=== PATIENT | female | born 1975 | race Caucasian/White ===

== ENCOUNTER 2021-11-21 19:12 | Emergency (ER) | payer BC, SELFPAY ==
[2021-11-21] VITALS (7 sets, daily range): BP systolic 160–164; BP diastolic 98–107; PULSE 78–102; RESP 18; TEMP 37; O2SAT 96–100
--- NOTE | 2021-11-21 20:09 | CRLHL7_ITS ---
For Patients: As a result of the Century Cures Act, medical imaging exams and procedure reports are released immediately into your electronic medical record. You may view this report before your referring provider. If you have questions, please contact your health care provider. INDICATION: Abdominal pain, diarrhea, hematochezia TECHNIQUE: CT abdomen and pelvis acquired with 71 cc Isovue 370 IV contrast. COMPARISON: None. FINDINGS: Lower chest: The visualized lower lungs are aerated. No pleural or pericardial effusion. ABDOMEN: Liver: Normal enhancement liver. Scattered sub centimeter hypodensities are too small to characterize however statistically represent cysts/biliary hamartomas. Right hepatic lobe cyst. Gallbladder and biliary: Cholelithiasis in an otherwise normal gallbladder. Normal caliber bile ducts. Spleen: Normal size and enhancement. Pancreas: Normal enhancement without peripancreatic inflammatory changes or ductal dilatation. Pancreas divisum. Adrenal glands: Normal adrenal glands. Kidneys and ureters: Normal enhancement. No radio-opaque calculi. No hydroureteronephrosis. Subcentimeter hypodensities are too small to characterize however statistically represent cysts. GI tract: The stomach is relatively decompressed. Normal caliber small and large bowel loops. Normal appendix. Circumferential wall thickening throughout the near entirety of the colon with associated mild adjacent inflammatory stranding. No diverticulosis. Vascular structures: Normal caliber abdominal aorta. Lymph nodes: No lymphadenopathy in the abdomen or pelvis by size criteria. Peritoneum: No free air, free fluid, or focal drainable fluid collection. PELVIS: Genitourinary system: Normal urinary bladder. Age-appropriate uterus. SKELETAL STRUCTURES AND SOFT TISSUES: No suspicious lytic or blastic lesions. IMPRESSION: Circumferential wall thickening throughout the near entirety of the colon with associated mild adjacent inflammatory stranding. No diverticulosis. Constellation of findings favor pancolitis. Please note that all CT scans at this facility use dose modulation, iterative reconstruction, and/or weight-based dosing when appropriate to reduce radiation dose to as low as reasonably achievable. Dictated by Jesus Alberto Daniel MD @ 11/21/2021 9:01:02 PM (Electronically Signed)
--- NOTE | 2021-11-21 20:16 | ED_ITS ---
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 Otherwise no particular sick contacts. Presents with 3 days of diarrhea and abdominal cramping across the low abdomen. Initially quite profuse. It slowed maybe a little bit but any time she eats or maybe drinks would be triggered to cramping and have movement. Was seen this morning in urgency care where labs were done. I am able to review these results. Looks like hemoglobin was reported to be normal and white count was not apparently elevated. Comprehensive metabolic panel also was unimpressive. Stool cultures and C diff are pending. She did not have recent antibiotics. No known a history of irritable bowel type sympto ms. No family history of Crohn's or ulcerative colitis. She does have some more remote hemorrhoids but she does not believe that these are acting up at this point. No fever. What was alarming is that started to notice blood in the stool today. She does not note any lightheadedness or shortness of breath. She did receive IV fluids at the urgency room. Related Data Home Medications Medication Instructions Recorded Confirmed buspirone 10 mg tablet mg 11/21/21 labetalol 200 mg tablet mg 11/21/21 trazodone 50 mg tablet mg 11/21/21 venlafaxine 37.5 mg 112.5 mg PO DAILY 11/21/21 11/21/21 capsule,extended release 24 hr Allergies Allergy/AdvReac Type Severity Reaction Status Date / Time dissolvable sutures Allergy Uncoded 11/21/21 20:28 Review of Systems Status of ROS: Reports: 10 or more systems reviewed and unremarkable except as noted in History and below [facility] Social History Smoking Status: Never smoker Do you use any of these nicotine containing products: None Second hand tobacco smoke exposure: Yes How often do you have a drink containing alcohol: 4 or more times a week How many standard drinks containing alcohol do you have on a typical day: 3 or 4 How often do you have six or more drinks on one occasion: Never AUDIT-C Alcohol total score: 5 Non-prescribed substance use: denies use Exam Narrative: Exam Narrative: Pleasant. NAD. Good sense of humor. Skin is warm and dry. Breathing easily. Lungs clear. Cardiovascular RRR no murmurs rubs or gallops Abdomen is moderately tender without peritoneal signs across the low abdomen. Normoactive to maybe hyperactive bowel sounds. No flank pain Moving all extremities without difficulty. Well perfused. Anal/rectal exam not done Const: Vital Signs, click to edit/add: Vital Signs - 24 hr 11/21/21 19:37 11/21/21 19:52 11/21/21 20:00 Temperature 98.6 F Pulse Rate 102 H 83 Pulse Rate [Pulse Oximeter] 89 Respiratory Rate 18 Blood Pressure Blood Pressure [Le ft Upper Arm] 161/107 H Pulse Oximetry 98 100 97 Oxygen Delivery Me thod Room Air 11/21/21 20:15 11/21/21 20:36 11/21/21 20:49 Temperature Pulse Rate 78 79 Pulse Rate [Pulse Oximeter] Respiratory Rate Blood Pressure 164/98 H Blood Pressure [Le ft Upper Arm] Pulse Oximetry 96 98 Oxygen Delivery Me thod 11/21/21 21:31 Temperature Pulse Rate Pulse Rate [Pulse Oximeter] Respiratory Rate Blood Pressure 160/100 H Blood Pressure [Le ft Upper Arm] Pulse Oximetry Oxygen Delivery Me thod Documenting provider has reviewed patient's vital signs: yes Course Course Hospital Course: Given L of fluids and hyoscyamine. Upon re-evaluation noted that symptoms did not change significantly Vital Signs Vital signs: Initial Vital Signs Temperature 98.6 F 11/21/21 19:37 Temperature Source Temporal Artery Scan 11/21/21 19:37 Pulse Rate 89 11/21/21 19:37 Respiratory Rate 18 11/21/21 19:37 Blood Pressure 161/107 H 11/21/21 19:37 Blood Pressure Mean 125 11/21/21 19:37 Pulse Oximetry 98 11/21/21 19:37 Oxygen Delivery Method 11/21/21 19:37 Vital Signs Temperature 98.6 F 11/21/21 19:37 Pulse Rate 89 11/21/21 19:37 Respiratory Rate 18 11/21/21 19:37 Blood Pressure 161/107 H 11/21/21 19:37 Pulse Oximetry 98 11/21/21 19:37 Oxygen Delivery Method 11/21/21 19:37 Temperature 98.6 F 11/21/21 19:37 Pulse Rate 79 11/21/21 20:36 Respiratory Rate 18 11/21/21 19:37 Blood Pressure 160/100 H 11/21/21 21:31 Pulse Oximetry 98 11/21/21 20:36 Oxygen Delivery Method 11/21/21 19:37 MDM - Nausea/Vomiting/Diarrhea MDM Narrative Medical decision making narrative: I think has relatively benign abdomen. Suspect infectious colitis of some sort. White count and lab workup in general was reassuring this morning with stool analysis pending. She would like some more fluids. I think that is reasonable. We discussed potentially waiting a couple of days for improvement or proceeding now with imaging. Differential does include diverticular disease though I think this is less likely. Diarrhea with internal hemorrhoidal bleeding would be possible as well. Seems more like a colitis though with abdominal colic. CBC and Chems are normal from earlier today Ms. Hyde would like more definitive diagnosis; not unreasonable. CT scan confirms pancolitis and we see cholelithiasis (she is aware of this) Medical Records Attestation: I reviewed the patient's medical records. Lab Data Attestation: I reviewed the patient's lab results. (From this morning in outside clinic) Discharge Plan Discharge Clinical Impression: Colitis, Hematochezia Patient Disposition: Home, Self-Care Condition: Stable Additional Instructions: Continue to focus on hydration. Diluted juices, broths advancing to thicker soups and smoothies over the period of the next couple of days. Return/be seen for uncontrolled pain, repeated vomiting, diarrhea to the point where feeling potentially getting dehydrated/lightheaded, marked increase in bleeding, associated fever. Can take ibuprofen up to 800 mg per dose. Can take acetaminophen up to 1000 mg per dose. Keep in mind that the [place] has 325 mg of acetaminophen in each tablet. Any of these medications can be combined. Hopefully results come back soon from your earlier visit today. This might direct further treatment. Otherwise follow-up in 4-5 days if symptoms are persisting and you are not otherwise unwell as noted above. [facility] from [facility] Prescriptions: No Action venlafaxine 37.5 mg capsule,extended release 24hr 112.5 mg PO DAILY labetalol 200 mg tablet Label Comments: TAKE 1 TABLET BY MOUTH TWICE A DAY trazodone 50 mg tablet Label Comments: TAKE 1 TABLET BY MOUTH EVERY DAY AT BEDTIME NEEDED FOR SLEEP buspirone 10 mg tablet Label Comments: TAKE 1 TABLET BY MOUTH 3 TIMES DAILY Follow Up/Referrals: OeSara mcintosh DO [Primary Care Provider] - Stand Alone Forms: [facility] Info Instructions
[2021-11-21] MEDS: 0.9 % SODIUM CHLORIDE 1000 ml 1,000 ML IV (20:57)
== END 2021-11-21 22:12 | disposition home or self-care (01) ==
PROVIDERS: Emergency Provider Family Medicine; PCP Family Medicine
DX: K52.9 Noninfective gastroenteritis and colitis, unspecified (principal); K92.1 Melena
CPT/HCPCS: 74177; 96360; 99284; J7030; Q9967

== ENCOUNTER 2021-11-22 19:11 | Emergency (ER) | payer BC, SELFPAY ==
[2021-11-22 19:16] VITALS: BP 152/105; PULSE 92; TEMP 37.6; O2SAT 98; BMI 25.8
[2021-11-22 19:30] VITALS: BP 150/106; RESP 16; O2SAT 98
--- NOTE | 2021-11-22 19:42 | ED.ABDPAIN ---
HPI - Abdominal Pain General Chief Complaint: Abdominal Pain Stated Complaint: Intestinal Problems Time Seen by Provider: 11/22/21 19:13 History of Present Illness HPI narrative: This 46-year-old female returns today for because of abdominal pain and bloody diarrhea. She was seen last evening and a previous urgent care results showed evidence of she got toxin in the stool. She states that she has bloody diarrhea about every half an hour. She has taken her medications but feels that she has not absorbed them and has some increased anxiety. She is taking Effexor and buspirone. She arrives with normal vital signs. Related Data Home Medications Medication Instructions Recorded Confirmed buspirone 10 mg tablet mg 11/21/21 labetalol 200 mg tablet mg 11/21/21 trazodone 50 mg tablet mg 11/21/21 venlafaxine 37.5 mg 112.5 mg PO DAILY 11/21/21 11/21/21 capsule,extended release 24 hr Allergies Allergy/AdvReac Type Severity Reaction Status Date / Time dissolvable sutures Allergy Uncoded 11/21/21 20:28 Review of Systems Status of ROS Reports: 10 or more systems reviewed and unremarkable except as noted in History and below Narrative Constitutional: No fevers, no weight gain or loss. She reports generalized malaise. Eyes: No discharge. No vision changes. HENT: No congestion, no sore throat, no ear pain. Cardiovascular: No chest pain, no palpitations. Respiratory: No shortness of breath, no wheezes, no cough. Gastrointestinal: Abdominal pain with nausea and a vomiting episode. Recurrent bloody diarrhea as described above. Genitourinary: No dysuria, no hematuria. Musculoskeletal: Normal range of motion. Skin: No rashes, no pruritis. Neurological: No dizziness, weakness, sensory change, speech change. Endo/Heme/Allergies: No bruising or bleeding. No polydipsia. Pysch: no suicidality, no insomnia. She reports increased anxiety and depression symptoms over the past couple days. She does not have any sense of feeling unsafe to herself or plan to harm herself. All other systems reviewed and are negative. [facility] Social History Smoking Status: Never smoker Do you use any of these nicotine containing products: None Second hand tobacco smoke exposure: Yes How often do you have a drink containing alcohol: 4 or more times a week How many standard drinks containing alcohol do you have on a typical day: 3 or 4 How often do you have six or more drinks on one occasion: Never AUDIT-C Alcohol total score: 5 Non-prescribed substance use: denies use Exam Narrative: Exam Narrative: Constitutional: Well-developed, well-nourished, no acute distress. HEENT: Normocephalic, atraumatic. Neck: Normal range of motion. Nontender. Supple. Heart: Regular. No murmurs. Normal rate. Intact distal pulses. Lungs: Clear to auscultation. No chest discomfort. No wheezes, rhonchi, or rales. Abdomen: Normal bowel sounds. Diffuse abdominal pain. Genitalia: Deferred. Back: No midline tenderness. Normal range of motion. Extremities: Normal range of motion. No injury. Skin: Intact. No rash. Warm. No erythema or pallor. Neurologic: No altered sensation. No weakness. Alert and oriented. Psychiatric: No suicidality. No anxiety or depression. No insomnia. Nursing notes and vitals signs are reviewed. Const: Vital Signs, click to edit/add: Vital Signs - 24 hr 11/22/21 19:16 11/22/21 20:49 11/22/21 19:30 Temperature 99.6 F Pulse Rate [Left P ulse Oximeter] 92 85 Respiratory Rate 16 16 Blood Pressure [Ri ght Upper Arm] 152/105 H 125/84 150/106 H Pulse Oximetry 98 98 98 Oxygen Delivery Me thod Room Air Room Air Room Air Course Vital Signs Vital signs: Initial Vital Signs Temperature 99.6 F 11/22/21 19:16 Temperature Source Temporal Artery Scan 11/22/21 19:16 Pulse Rate 92 11/22/21 19:16 Blood Pressure 152/105 H 11/22/21 19:16 Blood Pressure Mean 120 11/22/21 19:16 Blood Pressure Position Left Lateral 11/22/21 19:16 Pulse Oximetry 98 11/22/21 19:16 Oxygen Delivery Method 11/22/21 19:16 Vital Signs Temperature 99.6 F 11/22/21 19:16 Pulse Rate 92 11/22/21 19:16 Blood Pressure 152/105 H 11/22/21 19:16 Pulse Oximetry 98 11/22/21 19:16 Oxygen Delivery Method 11/22/21 19:16 Temperature 99.6 F 11/22/21 19:16 Pulse Rate 85 11/22/21 20:49 Respiratory Rate 16 11/22/21 20:49 Blood Pressure 125/84 11/22/21 20:49 Pulse Oximetry 98 11/22/21 20:49 Oxygen Delivery Method 11/22/21 20:49 MDM - Abdominal Pain MDM Narrative Medical decision making narrative: This patient comes in feeling generalized malaise and has abdominal pain rib with bloody diarrhea. She has an established diagnosis of Shiga toxin from E coli infection. An IV was established where she received a L of normal saline and 4 mg of Zofran. I also gave a 1 time dose of Toradol 30 mg with the understanding that this can prolonged bleeding somewhat but the patient nevertheless found great relief with this medicine. Additionally lab results returned with normal findings. She is not anemic and her kidneys are functioning normally. This is all very reassuring despite needing to let the symptoms run its course. Symptoms started about 4 days ago so she hopefully is on the down swing of the time duration of these toxins affecting her. She is okay to be discharged home. I advised her to return if worsening symptoms occur. She did receive a prescription for Zofran and some tablets of Ativan. Lab Data Labs: Lab Results 11/22/21 11/22/21 Range/Units 20:10 20:10 WBC 9.49 (4.50-11.00) K/uL RBC 4.43 (4.00-5.20) m/uL Hgb 13.4 (12.0-16.0) gm/dL Hct 39.7 (33.0-51.0) % MCV 90 (80-100) fL MCH 30 (26-34) pg MCHC 34 (32-36) gm/dL RDW Coeff of Evangelina 12.5 (11.5-15.5) % Plt Count 299 (140-440) K/uL Neut % (Auto) 71.9 (42.0-72.0) % Lymph % (Auto) 19.0 L (20-44) % [place] % (Auto) 7.4 (0.0-11.0) % Eos % (Auto) 1.3 (0.0-7.0) % Baso % (Auto) 0.2 (0.0-3.0) % Neut # (Auto) 6.83 (1.7-7.0) K/uL Lymph # (Auto) 1.80 (0.90-2.90) K/uL [place] # (Auto) 0.70 (0.00-0.90) K/UL Eos # (Auto) 0.12 (0.00-0.50) K/uL Baso # (Auto) 0.02 (0.00-0.30) K/uL Abs Immat Gran (auto) 0.02 (0.00-0.30) K/uL Sodium 136 (135-149) mmol/L Potassium 3.9 (3.6-5.1) mmol/L Chloride 104 (96-114) mmol/L Carbon Dioxide 22 (20-32) mmol/L BUN 8 (5-24) mg/dL Creatinine 0.6 (0.5-1.5) mg/dL Estimated Creat Clear 107.67 Estimated GFR 113 ml/min Glucose 101 (60-115) mg/dL Calcium 8.7 (8.4-10.6) mg/dL Discharge Plan Discharge Clinical Impression: Shiga toxin-producing Escherichia coli infection Patient Disposition: Home, Self-Care Condition: Improved Additional Instructions: Take fluids regularly. Increase diet as tolerated. Take medications as prescribed. Follow up with MD or return if not improving or worsening symptoms happen. Prescriptions: No Action venlafaxine 37.5 mg capsule,extended release 24hr 112.5 mg PO DAILY labetalol 200 mg tablet Label Comments: TAKE 1 TABLET BY MOUTH TWICE A DAY trazodone 50 mg tablet Label Comments: TAKE 1 TABLET BY MOUTH EVERY DAY AT BEDTIME NEEDED FOR SLEEP buspirone 10 mg tablet Label Comments: TAKE 1 TABLET BY MOUTH 3 TIMES DAILY Follow Up/Referrals: Sara Gunn DO [Primary Care Provider] - Stand Alone Forms: [facility] Info Instructions
[2021-11-22] MEDS: KETOROLAC 30 MG/ML inj IVP (20:11)
[2021-11-22] MEDS: 0.9 % SODIUM CHLORIDE 1000 ml 1,000 ML IV (20:11)
[2021-11-22] MEDS: ONDANSETRON 2 MG/ML inj 4 MG IVP (20:11)
[2021-11-22 20:20] LABS: Basophils Absolute Auto 0.02 K/uL (0.00-0.30); Basophils Percent Auto 0.2 % (0.0-3.0); Eosinophils Absolute Auto 0.12 K/uL (0.00-0.50); Eosinophils Percent Auto 1.3 % (0.0-7.0); Hematocrit 39.7 % (33.0-51.0); Hemoglobin* 13.4 gm/dL (12.0-16.0); Immature Granulocytes Abs Auto 0.02 K/uL (0.00-0.30); Mean Corpuscular HGB Conc 34 gm/dL (32-36); Mean Corpuscular Hemoglobin 30 pg (26-34); Mean Corpuscular Volume 90 fL (80-100); Monocytes Percent Auto 7.4 % (0.0-11.0); Neutrophils Absolute Auto 6.83 K/uL (1.7-7.0); Neutrophils Percent Auto 71.9 % (42.0-72.0); Platelet Count* 299 K/uL (140-440); RDW Coefficient of Variation % 12.5 % (11.5-15.5); Red Blood Count 4.43 m/uL (4.00-5.20); White Blood Count* 9.49 K/uL (4.50-11.00)
[2021-11-22 20:23] LABS: Slide Review Reflex No
[2021-11-22 20:34] LABS: Chloride* 104 mmol/L (96-114); Sodium* 136 mmol/L (135-149)
[2021-11-22 20:35] LABS: Potassium* 3.9 mmol/L (3.6-5.1)
[2021-11-22 20:37] LABS: Creatinine* 0.6 mg/dL (0.5-1.5); Est. Creatinine Clearance* 107.67; Estimated Glomerular Filt Rate 113 ml/min
[2021-11-22 20:38] LABS: Blood Urea Nitrogen* 8 mg/dL (5-24); Calcium* 8.7 mg/dL (8.4-10.6); Carbon Dioxide* 22 mmol/L (20-32); Glucose* 101 mg/dL (60-115)
[2021-11-22 20:49] VITALS: BP 125/84; PULSE 85; RESP 16; O2SAT 98
== END 2021-11-22 21:19 | disposition home or self-care (01) ==
PROVIDERS: Emergency Provider Emergency Medicine Emergency Medical Services; PCP Family Medicine
DX: R19.5 Other fecal abnormalities (principal); B96.21 Shiga toxin-producing Escherichia coli [E. coli] [STEC] O157 as the cause of diseases classified elsewhere
CPT/HCPCS: 36415; 80048; 85025; 96374; 96375; 99284; 99285; J1885; J2405; J7030

== ENCOUNTER 2021-12-17 15:03 | Outpatient (CLI) | payer BC, SELFPAY ==
--- NOTE | 2021-12-17 15:00 | CRLHL7_ITS ---
For Patients: As a result of the Century Cures Act, medical imaging exams and procedure reports are released immediately into your electronic medical record. You may view this report before your referring provider. If you have questions, please contact your health care provider. BILATERAL SCREENING DIGITAL MAMMOGRAM WITH COMPUTER-AIDED DETECTION AND TOMOSYNTHESIS, 12/17/2021 INDICATION: Screening mammogram. TECHNIQUE: CC and MLO views were obtained using full-field digital technique. These mammographic images were interpreted with the benefit of computer-aided detection and tomosynthesis. COMPARISON FILM: 10/03/2020, 11/08/2018. BREAST COMPOSITION: The breasts are heterogeneously dense, which may obscure small masses. FINDINGS: Possible 1 cm asymmetry in RIGHT superior breast, 11 cm from the nipple. Negative findings in the LEFT breast. IMPRESSION: Possible RIGHT breast asymmetry. RECOMMENDATION: Recommend MLO spot compression view and 90-degree lateral view. Additionally, ultrasound may be needed during the diagnostic evaluation. [facility] will contact the patient for follow-up. ASSESSMENT: BI-RADS Category 0: Incomplete: Need Additional Imaging Evaluation and/or Prior Mammograms for Comparison. A lay language report of this examination will be provided to the patient. MARU FOLEY M.D. Diagnostic/Breast Radiologist [email or web address] Transcribed: 11:[address]/Dictated by: Maru Foley MD @ 12/18/2021 8:34:00 AM (Electronically Signed)
== END 2021-12-17 15:04 | disposition home or self-care (01) ==
LOC: MAMMO 15:03
PROVIDERS: PCP Family Medicine; Visit Provider Obstetrics & Gynecology
DX: Z12.31 Encounter for screening mammogram for malignant neoplasm of breast (principal); N63.10 Unspecified lump in the right breast, unspecified quadrant
CPT/HCPCS: 77063; 77067

== ENCOUNTER 2021-12-24 10:35 | Outpatient (CLI) | payer BC, SELFPAY ==
--- NOTE | 2021-12-24 10:45 | CRLHL7_ITS ---
For Patients: As a result of the Cures Act, medical imaging exams and procedure reports are released immediately into your electronic medical record. You may view this report before your referring provider. If you have questions, please contact your health care provider. DIGITAL DIAGNOSTIC RIGHT MAMMOGRAM USING TOMOSYNTHESIS AND COMPUTER-AIDED DETECTION RIGHT BREAST ULTRASOUND CLINICAL HISTORY: RIGHT breast mass/asymmetry. COMPARISON: 12/17/2021. TECHNIQUE: Digital RIGHT mammogram in two projections. Tomosynthesis and CAD utilized. Real-time ultrasound imaging of RIGHT breast with imaging documentation. BREAST COMPOSITION: The breast is heterogeneously dense, which may obscure small masses. FINDINGS: 3D spot compression MLO and 3D true lateral RIGHT breast mammograms submitted. Decreased conspicuity of previously noted asymmetric density within the upper RIGHT breast. No underlying suspicious mass or architectural distortion. No adenopathy or suspicious calcifications. Targeted ultrasound in the RIGHT breast 12 o`clock 6 cm from the nipple performed. Normal fibroglandular tissue is present. No fibrocystic change or mass. IMPRESSION: No evidence of malignancy. RECOMMENDATIONS: Annual BILATERAL screening mammography. Results and recommendations discussed with the patient. BI-RADS Category 2: Benign A lay language report of this examination will be provided to the patient. Dictated by Jesus Alberto Levin MD @ 12/24/2021 11:52:56 AM jj/Dictated by: Jesus Alberto Levin MD @ 12/24/2021 11:52:00 AM (Electronically Signed)
--- NOTE | 2021-12-24 11:15 | CRLHL7_ITS ---
For Patients: As a result of the Cures Act, medical imaging exams and procedure reports are released immediately into your electronic medical record. You may view this report before your referring provider. If you have questions, please contact your health care provider. PLEASE SEE DIGITAL DIAGNOSTIC RIGHT MAMMOGRAM PERFORMED SAME DAY CRL:[email or web address] saba/Dictated by: Jesus Alberto Levin MD @ 12/24/2021 11:53:00 AM (Electronically Signed)
== END 2021-12-24 10:36 | disposition home or self-care (01) ==
LOC: US 10:35
PROVIDERS: PCP Family Medicine; Visit Provider Obstetrics & Gynecology
DX: N63.10 Unspecified lump in the right breast, unspecified quadrant (principal); R92.8 Other abnormal and inconclusive findings on diagnostic imaging of breast
CPT/HCPCS: 76642; 77065; G0279

== ENCOUNTER 2023-02-21 13:13 | Outpatient (CLI) | payer BC, SELFPAY ==
--- NOTE | 2023-02-21 13:20 | CRLHL7_ITS ---
For Patients: As a result of the Cures Act, medical imaging exams and procedure reports are released immediately into your electronic medical record. You may view this report before your referring provider. If you have questions, please contact your health care provider. BILATERAL SCREENING MAMMOGRAM WITH COMPUTER-AIDED DETECTION AND TOMOSYNTHESIS TECHNIQUE: CC and MLO views were obtained. These mammographic images have been obtained using full-field digital technique. These mammographic images were interpreted with the benefit of computer-aided detection. Breast Tomosynthesis was used in this interpretation. COMPARISON FILM: 12/17/21, 10/03/20, 11/09/18. FINDINGS: The breasts are heterogeneously dense, which may obscure small masses IMPRESSION: There is no radiographic evidence for malignancy. ASSESSMENT: BI-RADS Category 1: Negative RECOMMENDATION: Routine screening mammogram in 1 year. A lay language report of this examination will be provided to the patient. Jesus Alberto Levin M.D. Diagnostic Radiologist [email or web address] JOSH/[email or web address] / be/Dictated by: Jesus Alberto Levin MD @ 02/24/2023 10:00:00 AM (Electronically Signed)
== END 2023-02-21 13:14 | disposition home or self-care (01) ==
LOC: MAMMO 13:14
PROVIDERS: PCP Family Medicine; Visit Provider Obstetrics & Gynecology
DX: Z12.31 Encounter for screening mammogram for malignant neoplasm of breast (principal); R92.2 Inconclusive mammogram
CPT/HCPCS: 77063; 77067

== ENCOUNTER 2024-04-22 08:10 | Outpatient (CLI) | payer BC, SELFPAY ==
--- NOTE | 2024-04-22 08:15 | CRLHL7_ITS ---
For Patients: As a result of the Century Cures Act, medical imaging exams and procedure reports are released immediately into your electronic medical record. You may view this report before your referring provider. If you have questions, please contact your health care provider. BILATERAL SCREENING MAMMOGRAM WITH COMPUTER-AIDED DETECTION AND TOMOSYNTHESIS TECHNIQUE: CC and MLO views were obtained. These mammographic images have been obtained using full-field digital technique. These mammographic images were interpreted with the benefit of computer-aided detection. Breast Tomosynthesis was used in this interpretation. COMPARISON FILM: 02/21/23, 12/17/21, 10/03/20. FINDINGS: There are scattered areas of fibroglandular density. IMPRESSION: There is no radiographic evidence for malignancy. ASSESSMENT: BI-RADS Category 1: Negative RECOMMENDATION: Routine screening mammogram in 1 year. A lay language report of this examination will be provided to the patient. Jesus Alberto Levin M.D. Diagnostic Radiologist [email or web address] SP/Dictated by: Jesus Alberto Levin MD @ 04/22/2024 10:45:00 AM (Electronically Signed)
== END 2024-04-22 08:11 | disposition home or self-care (01) ==
LOC: MAMMO 08:11
PROVIDERS: PCP Family Medicine; Visit Provider Obstetrics & Gynecology
DX: Z12.31 Encounter for screening mammogram for malignant neoplasm of breast (principal)
CPT/HCPCS: 77063; 77067